=== PATIENT | male | born 1960 | race Caucasian/White ===

== ENCOUNTER → 2017-07-29 | Outpatient (CLI) | payer BC | END | disposition home or self-care (01) | LOC: KCIC MRI 07:38 | DX: S46.011A Strain of muscle(s) and tendon(s) of the rotator cuff of right shoulder, initial encounter (principal); S43.081A Other subluxation of right shoulder joint, initial encounter; M19.011 Primary osteoarthritis, right shoulder; X58.XXXA Exposure to other specified factors, initial encounter; Y93.89 Activity, other specified; Y92.89 Other specified places as the place of occurrence of the external cause; Y99.8 Other external cause status; M25.711 Osteophyte, right shoulder | CPT/HCPCS: 73221 ==

== ENCOUNTER → 2017-08-04 | Outpatient (CLI) | payer BC ==
[2017-08-04] MEDS: IOHEXOL 300 MG/ML 100ML VIAL. IV (09:13)
== END | disposition home or self-care (01) ==
LOC: KCIC CT 08:47
DX: J43.8 Other emphysema (principal); D71 Functional disorders of polymorphonuclear neutrophils; Z72.0 Tobacco use
CPT/HCPCS: 71260; Q9967

== ENCOUNTER → 2018-08-26 | Day surgery (SDC) | payer BC ==
[~2018-08-26] MED LIST: IV RINGERS,LACTATED 1000ML 1,000 ML IV SCH; LIDOCAINE 2% PF 5 ML VIAL. ONE; NAPR220T70 PO; OMEP20CA10 PO; PROPOFOL 20 ML IV ONE
[2018-08-26 09:26] VITALS: BP 127/68
== END | disposition home or self-care (01) ==
LOC: SURG 08:06
PROVIDERS: ATTEND Internal Medicine Gastroenterology
DX: K22.2 Esophageal obstruction (principal); K29.50 Unspecified chronic gastritis without bleeding; Z83.3 Family history of diabetes mellitus; Z82.49 Family history of ischemic heart disease and other diseases of the circulatory system; Z80.41 Family history of malignant neoplasm of ovary; Z79.899 Other long term (current) drug therapy; Z98.890 Other specified postprocedural states
CPT/HCPCS: 43235; 43450; J2001; J2704

== ENCOUNTER → 2019-10-27 | Outpatient (CLI) | payer BC ==
[2018-08-26 09:26] VITALS: BP 127/68
[~2019-10-27] MED LIST changes: -IV RINGERS,LACTATED 1000ML 1,000 ML IV SCH; -LIDOCAINE 2% PF 5 ML VIAL. ONE; -OMEP20CA10 PO; +OMEP20CA16 PO; -PROPOFOL 20 ML IV ONE
--- NOTE | 2019-10-27 17:14 | RAD ---
EXAM: MR RIGHT SHOULDER WITHOUT CONTRAST DATE: 10/27/2019 INDICATION: Worsening right shoulder pain, history of multiple surgeries COMPARISON: MRI right shoulder 07/29/2017 TECHNIQUE: Multiplanar, multisequence imaging of the right shoulder without contrast. FINDINGS: The susceptibility artifact in the right shoulder from prior surgeries. ROTATOR CUFF: Recurrent, now complete, full-thickness tear of the supraspinatus tendon with retraction of fibers to the glenoid. New retracted full-thickness tear of the anterior infraspinatus tendon. Evaluation of subscapularis tendon is limited by susceptibility artifact. There may be tearing of the cranial aspect of the tendon. Teres minor tendon is intact. There is new moderate atrophy of the infraspinatus muscle and mild atrophy of the supraspinatus muscle. Mild edema in the supraspinatus muscle. LABRUM: Worsened diffuse degenerative labral tearing. BICEPS TENDON: Sequela of prior biceps tenodesis. ACROMIOCLAVICULAR JOINT: Mild acromioclavicular degenerative joint disease with small osteophytes. Small joint effusion. Type II acromion. GLENOHUMERAL JOINT: Probable scattered superficial partial-thickness cartilage loss along the humeral head. OTHER: Joint effusion and fluid in the subacromial-subdeltoid bursa.. IMPRESSION: 1. 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 New moderate infraspinatus and mild supraspinatus muscular atrophy. Possible tearing of the cranial subscapularis tendon, evaluation limited by artifact. 2. Probable biceps tenodesis. Worsened degenerative labral tearing. 3. Mild acromioclavicular and glenohumeral degenerative joint disease. Electronically signed by: Martina Gallo MD (10/27/2019 5:11 PM) [id number]
== END | disposition home or self-care (01) ==
LOC: MRI 14:24
DX: S43.491A Other sprain of right shoulder joint, initial encounter (principal); S46.011A Strain of muscle(s) and tendon(s) of the rotator cuff of right shoulder, initial encounter; M19.011 Primary osteoarthritis, right shoulder; M25.711 Osteophyte, right shoulder; M25.411 Effusion, right shoulder; M62.58 Muscle wasting and atrophy, not elsewhere classified, other site; Z98.890 Other specified postprocedural states; X58.XXXA Exposure to other specified factors, initial encounter; Y93.89 Activity, other specified; Y92.89 Other specified places as the place of occurrence of the external cause; Y99.8 Other external cause status
CPT/HCPCS: 73221